=== PATIENT | male | born 2000 | race Caucasian/White ===

== ENCOUNTER 2024-10-28 19:20 | Emergency (ER) | payer SELFPAY ==
[~2024-10-28] VITALS: Ht 182.8 cm; Wt 136.1 kg
[~2024-10-28 19:20] MED LIST: AMOXICILLIN500 MG PO; CLARITIN10 MG PO; LIDEX0.05% T; MEDROL DOSEPAK4 MG PO; MOTRIN400 MG PO; MOTRIN600 MG PO; MOTRIN800 MG PO; NKHM; PREDNISONE20 MG PO; TOBRADEX 0.1%-0.5 ML OPH; TOBREX OPHTH S2.5 ML OPH; ZITHROMAX Z PA250 MG PO; ZOFRAN ODT4 MG PO
[2024-10-28 19:34] VITALS: BP 155/71
[2024-10-28] MEDS ORDERED: Dicyclomine Hydrochloride 20 MG/10 ML OSYR PO STA (19:43)
[2024-10-28] MEDS ORDERED: Lidocaine Hydrochloride 15 ML UDC PO STA (19:43)
[2024-10-28] MEDS ORDERED: MG-AL HYDROXIDE/SIMETICONE 30 ML UDC PO STA (19:43)
[2024-10-28 20:09] LABS: BASO % 0.2 % (0.0-1.0); HEMATOCRIT 44.4 % (42.0-52.0); MEAN CELL VOLUME 85.2 fl (80.0-94.0); MEAN CORPUSCULAR HGB 27.6 pg (27.0-31.0); MEAN CORPUSCULAR HGB CONC 32.4 g/dl (33.0-37.0); MEAN PLATELET VOLUME 9.8 fl (9.6-12.3); MONO # 0.4 10*3/uL (0.1-1.0); NEUT # 9.2 10*3/uL (2.3-7.9); PLATELET COUNT AUTOMATED 274 10*3/uL (130-400); RED BLOOD COUNT 5.21 10*6/uL (4.50-5.90); RED CELL DISTRI WIDTH 11.9 % (0-14.5); WHITE BLOOD COUNT 10.6 10*3/uL (4.8-10.8)
[2024-10-28 20:29] LABS: ALKALINE PHOSPHATASE 73 U/L (46-116); BUN 14 mg/dl (9-23); CHLORIDE 104 mmol/L (98-107); POTASSIUM 5.1 mmol/L (3.4-5.1); SGPT/ALT 40 U/L (5-49); TOTAL PROTEIN 8.2 gm/dL (6.0-8.0)
[2024-10-28] MEDS ORDERED: Ondansetron Hydrochloride 4 MG TAB SL ONE (21:15)
[2024-10-28] MEDS ORDERED: Ondansetron4 MG PO (21:41)
[2024-10-28] MEDS ORDERED: Ondansetron 4 MG 2 TAB ED PACK PO SCH (22:50)
== END 2024-10-28 22:59 | disposition home or self-care (01) ==
LOC: ED 19:20
PROVIDERS: Nurse Practitioner Family
DX: N21.0 Calculus in bladder (principal); R11.2 Nausea with vomiting, unspecified; Z79.899 Other long term (current) drug therapy

== ENCOUNTER → 2024-11-01 | Day surgery (SDC) | payer OTHER ==
[~2024-11-01] VITALS: Ht 193 cm; Wt 136.1 kg
[~2024-11-01] MED LIST changes: +BUPivacaine 0.5% 30 ML IV ONE; +COLACE100 MG PO; +Dexamethasone Sodium Phospha 4 MG/ML VIAL IV ONE; +IOHEXOL 240 MG/ML 20 ML SOL ONE; +Lactated Ringer's Solution 1,000 ML IV ONE; +Lidocaine Hydrochloride 2% 5 ML SDV IV ONE; +Midazolam Hydrochloride 2 MG/2 ML VIAL IV ONE; +Ondansetron Hydrochloride 4 MG/2 ML VIAL IV ONE; +Ondansetron4 MG PO; +PERCOCET 5-3251 EACH PO; +PROPOFOL 200 MG/20 ML VIAL IV ONE; +ROCURONIUM BROMIDE 50 MG/5 ML SYRINGE IV ONE; +SEVOFLURANE 250 ML BOT INH ONE; +SODIUM CHLORIDE 0.9% 0 ML IV ONE; +SUGAMMADEX SODIUM 200 MG/2 ML VIAL IV ONE; +ceFAZolin sodium 1 GM VIAL ONE; +ceFAZolin sodium/sodium chlor 1 GM/10 ML SYR IV ONE; +ceFAZolin sodium/sodium chlor 20 ML IV ONE; +dexmedeTOMIDine HCL 200 MCG/2 ML VIAL IV ONE; +fentaNYL CITRATE 100 MCG/2 ML VIAL IV ONE
[2024-11-01 06:45] VITALS: BP 123/71
[2024-11-01 09:31] VITALS: BP 106/57
[2024-11-01 09:46] VITALS: BP 132/78
[2024-11-01 10:01] VITALS: BP 144/75
[2024-11-01 10:16] VITALS: BP 142/72
[2024-11-01 10:31] VITALS: BP 131/81
== END | disposition home or self-care (01) ==
LOC: SDC 10-30 10:15
PROVIDERS: ATTEND Surgery
DX: K80.00 Calculus of gallbladder with acute cholecystitis without obstruction (principal); E78.00 Pure hypercholesterolemia, unspecified; F12.90 Cannabis use, unspecified, uncomplicated; F17.210 Nicotine dependence, cigarettes, uncomplicated; Z83.3 Family history of diabetes mellitus

== ENCOUNTER 2025-04-29 19:41 | Emergency (ER) | payer OTHER ==
[~2025-04-29] VITALS: Ht 182.8 cm; Wt 136.1 kg
[~2025-04-29 19:41] MED LIST changes: -BUPivacaine 0.5% 30 ML IV ONE; -Dexamethasone Sodium Phospha 4 MG/ML VIAL IV ONE; -IOHEXOL 240 MG/ML 20 ML SOL ONE; -Lactated Ringer's Solution 1,000 ML IV ONE; -Lidocaine Hydrochloride 2% 5 ML SDV IV ONE; -Midazolam Hydrochloride 2 MG/2 ML VIAL IV ONE; -Ondansetron Hydrochloride 4 MG/2 ML VIAL IV ONE; -PROPOFOL 200 MG/20 ML VIAL IV ONE; -ROCURONIUM BROMIDE 50 MG/5 ML SYRINGE IV ONE; -SEVOFLURANE 250 ML BOT INH ONE; -SODIUM CHLORIDE 0.9% 0 ML IV ONE; -SUGAMMADEX SODIUM 200 MG/2 ML VIAL IV ONE; -ceFAZolin sodium 1 GM VIAL ONE; -ceFAZolin sodium/sodium chlor 1 GM/10 ML SYR IV ONE; -ceFAZolin sodium/sodium chlor 20 ML IV ONE; -dexmedeTOMIDine HCL 200 MCG/2 ML VIAL IV ONE; -fentaNYL CITRATE 100 MCG/2 ML VIAL IV ONE
[2025-04-29 19:56] VITALS: BP 128/78
== END 2025-04-29 22:06 | disposition home or self-care (01) ==
LOC: ED 19:41
DX: F41.9 Anxiety disorder, unspecified (principal); Z79.899 Other long term (current) drug therapy